=== PATIENT | female | born 1960 | race Caucasian/White ===

== ENCOUNTER → 2019-05-11 18:54 | Outpatient (BNVA) | payer MEDICAID, SELFPAY | PROVIDERS: Family Provider Nurse Practitioner Family; PCP Family Medicine; Visit Provider Family Medicine | DX: J44.9 Chronic obstructive pulmonary disease, unspecified (principal); E11.9 Type 2 diabetes mellitus without complications; Z79.4 Long term (current) use of insulin; I20.8 Other forms of angina pectoris; K21.9 Gastro-esophageal reflux disease without esophagitis; G47.00 Insomnia, unspecified; M48.00 Spinal stenosis, site unspecified; N36.1 Urethral diverticulum | CPT/HCPCS: 80053; 80061; 83036; 85025 ==

== ENCOUNTER → 2020-04-30 10:55 | Outpatient (BNVA) | payer MEDICAID, SELFPAY | PROVIDERS: Family Provider Nurse Practitioner Family; PCP Family Medicine; Visit Provider Family Medicine | DX: E11.9 Type 2 diabetes mellitus without complications (principal); J45.909 Unspecified asthma, uncomplicated; Z79.4 Long term (current) use of insulin; I20.8 Other forms of angina pectoris; G47.00 Insomnia, unspecified; I10 Essential (primary) hypertension; F17.210 Nicotine dependence, cigarettes, uncomplicated | CPT/HCPCS: 80053; 80061; 83036; 84443; 85025 ==

== ENCOUNTER → 2020-10-10 09:50 | Outpatient (BNVA) | payer MEDICAID, SELFPAY | PROVIDERS: Family Provider Nurse Practitioner Family; PCP Family Medicine; Visit Provider Family Medicine | DX: J45.909 Unspecified asthma, uncomplicated (principal); Z79.4 Long term (current) use of insulin; N36.1 Urethral diverticulum; E11.9 Type 2 diabetes mellitus without complications; G47.00 Insomnia, unspecified; I10 Essential (primary) hypertension | CPT/HCPCS: 80053; 80061; 83036; 84443; 85007; 85025 ==

== ENCOUNTER → 2021-03-12 10:52 | Outpatient (BNVA) | payer MEDICAID, SELFPAY | PROVIDERS: Family Provider Nurse Practitioner Family; PCP Family Medicine; Visit Provider Nurse Practitioner Family | DX: E11.9 Type 2 diabetes mellitus without complications (principal); I10 Essential (primary) hypertension; N95.1 Menopausal and female climacteric states; Z79.4 Long term (current) use of insulin; R00.2 Palpitations; G47.00 Insomnia, unspecified; G43.909 Migraine, unspecified, not intractable, without status migrainosus | CPT/HCPCS: 80053; 80061; 82306; 83036; 84443 ==

== ENCOUNTER → 2021-06-03 09:50 | Outpatient (BNVA) | payer MEDICAID, SELFPAY | PROVIDERS: Family Provider Nurse Practitioner Family; PCP Family Medicine; Visit Provider Nurse Practitioner Family | DX: E11.9 Type 2 diabetes mellitus without complications (principal); Z79.4 Long term (current) use of insulin; I10 Essential (primary) hypertension | CPT/HCPCS: 80053; 80061; 83036 ==

== ENCOUNTER → 2021-09-03 12:24 | Outpatient (BNVA) | payer MEDICAID, SELFPAY | PROVIDERS: Family Provider Nurse Practitioner Family; PCP Family Medicine; Visit Provider Nurse Practitioner Family | DX: H92.01 Otalgia, right ear (principal); G89.29 Other chronic pain; E55.9 Vitamin D deficiency, unspecified; G47.00 Insomnia, unspecified; J30.9 Allergic rhinitis, unspecified; I10 Essential (primary) hypertension; K59.00 Constipation, unspecified; E11.9 Type 2 diabetes mellitus without complications; Z79.4 Long term (current) use of insulin | CPT/HCPCS: 80053; 83036 ==

== ENCOUNTER → 2021-12-18 11:51 | Outpatient (BNVA) | payer MEDICAID, SELFPAY | PROVIDERS: Family Provider Nurse Practitioner Family; PCP Family Medicine; Visit Provider Nurse Practitioner Family | DX: I10 Essential (primary) hypertension (principal); F41.9 Anxiety disorder, unspecified; K59.00 Constipation, unspecified; E55.9 Vitamin D deficiency, unspecified; G47.00 Insomnia, unspecified; E11.9 Type 2 diabetes mellitus without complications; Z79.4 Long term (current) use of insulin; R00.2 Palpitations; G43.909 Migraine, unspecified, not intractable, without status migrainosus; R53.83 Other fatigue; R53.1 Weakness; Z09 Encounter for follow-up examination after completed treatment for conditions other than malignant neoplasm | CPT/HCPCS: 80053; 80061; 82607; 82746; 83036; 85025 ==

== ENCOUNTER → 2022-06-12 13:28 | Outpatient (BNVA) | payer MEDICAID, SELFPAY | PROVIDERS: Family Provider Nurse Practitioner Family; PCP Family Medicine; Visit Provider Nurse Practitioner Family | DX: E11.9 Type 2 diabetes mellitus without complications (principal); Z79.4 Long term (current) use of insulin; I10 Essential (primary) hypertension | CPT/HCPCS: 80053; 83036 ==

== ENCOUNTER 2022-06-15 21:33 | Observation (INO) | payer MEDICAID, SELFPAY ==
[2022-06-15 21:35] VITALS: BP 210/80; PULSE 68; RESP 18; TEMP 36.6; O2SAT 97; BMI 39.1
--- NOTE | 2022-06-15 21:45 | ECG_ITS ---
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 Measurements Intervals [place] Rate: 64 P: 156 ID: 160 QRS: -24 QRSD: 96 T: -29 QT: 439 QTc: 454 Interpretive Statements SINUS RHYTHM POSSIBLE LEFT ATRIAL ENLARGEMENT [-0.1mV P-WAVE IN V1/V2] POSSIBLE LEFT VENTRICULAR HYPERTROPHY [VOLTAGE CRITERIA PLUS LAE OR QRS WIDENING] POSSIBLE ANTEROSEPTAL MYOCARDIAL INFARCTION , OF INDETERMINATE AGE [30 ms Q WAVE IN V1-V4] No previous ECG available for comparison Electronically Signed On 06-16-2022 14:27:55 CDT by Chuck Polk M.D. [id number]
--- NOTE | 2022-06-15 22:51 | XRR_ITS ---
PROCEDURE INFORMATION: Exam: XR Chest Exam date and time: 06/15/2022 11:25 PM Age: 61 years old Clinical indication: Pain; Chest pressure; Additional info: Cp TECHNIQUE: Imaging protocol: Radiologic exam of the chest. Views: 1 view. COMPARISON: No relevant prior studies available. FINDINGS: Lungs: Cardiac silhouette size, and vascularity are somewhat accentuated, likely related to poor inspiration/expansion however clinical correlation for mild CHF should be obtained. Upper lungs are clear. Lung bases are suboptimally assessed. Tiny streaky left lateral basilar opacity is likely atelectasis. Pleural spaces: No pleural effusion. No pneumothorax. Heart/Mediastinum: As above. Bones/joints: No acute osseous findings. Other findings: Single view was submitted. XR/XR chest 1V portable [id number] IMPRESSION: 1. Accentuated cardiac silhouette size and vascularity. See discussion above. 2. No obvious acute consolidation. Probable left lateral atelectasis. Suboptimal lung base assessment. Followup including lateral view may be obtained if clinically indicated.
[2022-06-15 23:13] VITALS: PULSE 56; RESP 18; O2SAT 97
[2022-06-15 23:30] VITALS: BP 228/98; PULSE 54; RESP 18; O2SAT 97
--- NOTE | 2022-06-15 23:40 | PC.NURSE ---
Pt brought back to room 6 and placed on monitors. EKG is done.
[2022-06-15 23:53] LABS: Basophils # 0.1 10^3/uL (0.0-0.1); Basophils % 0.7 %; Eosinophils # 0.2 10^3/uL (0.0-0.8); Eosinophils % 2.1 %; Hemoglobin 12.7 g/dL (11.5-15.3); Lymphocytes # 2.2 10^3/uL (0.8-4.8); Lymphocytes % 23.6 %; Mean Corpuscular Hemoglobin 25.3 pg (28.0-34.0); Mean Corpuscular Volume 81.7 fl (81-99); Mean Platelet Volume 11.2 fL (7.4-10.4); Monocytes % 10.9 %; Neutrophils # 5.82 10^3/uL (1.8-7.7); Neutrophils % 62.4 %; Nucleated Red Blood Cells % 0 %; Platelet Count 249 10^3/cmm (130-400); Red Blood Count 5.02 10^6/uL (4.1-5.3); Red Cell Distribution Width 13.3 % (12.1-15.1); White Blood Count 9.4 10^3/uL (4.0-10.0)
[2022-06-15 23:59] LABS: Troponin(5th) Baseline 7 ng/L (0-10)
[2022-06-16] VITALS (43 sets, daily range): BP systolic 110–230; BP diastolic 52–96; PULSE 54–88; RESP 13–22; TEMP 36.5; O2SAT 92–99
[2022-06-16 00:11] LABS: Alanine Aminotransferase 11 U/L (0-33); Albumin Level 3.9 g/dL (3.5-5.2); Alkaline Phosphatase 119 U/L (35-105); Anion Gap 15.9 (5-19); Aspartate Amino Transferase 14 U/L (0-32); Blood Urea Nitrogen 16 mg/dL (6-20); Calcium 8.8 mg/dL (8.5-10.5); Carbon Dioxide 25 mmol/L (22-29); Chloride 98 mmol/L (98-107); Globulin 2.8 g/dL (1.3-4.6); Glomerular Filtration Rate 73.4 mL/min (90-130); Glucose 301 mg/dL (65-115); NT Pro B Type Natriuretic Pept 373 pg/mL (0-125); Osmolality Calculated 292 mOsm/kg (285-295); Potassium 3.9 mmol/L (3.5-5.1); Sodium 135 mmol/L (136-145); Total Bilirubin 0.2 mg/dL (0.15-1.2); Total Protein 6.7 g/dL (6.6-8.7)
[2022-06-16] MEDS: nitroglycerin 1 gm/inch oint Pkt 1.5 INCH TOPICAL (00:37)
--- NOTE | 2022-06-16 00:37 | W.ED.CHESTPA ---
HPI - Chest Pain General: Chief Complaint: Chest Pain Stated Complaint: CP, arms tingling Time Seen by Provider: 06/15/22 23:24 Source: patient and family History of Present Illness: 61-year-old female with no prior history of coronary disease. She does have a history of diabetes and hypertension. She presents with left-sided chest discomfort, radiating into her left arm and into her neck. This started at rest. It is still present. Her blood pressure was quite elevated. She has a headache as well. MD complaint: chest pain Pertinent past history: other Onset (ago): hour(s) Timing of current episode: constant Prior episodes: Yes Onset: during rest Pain location: left chest Pain radiation: left arm and neck Severity: moderate Quality: aching and heaviness Relieving factors: nothing Associated symptoms: Reports diaphoresis, dyspnea, nausea and other; Deny abdominal pain, fever(s), leg edema or vomiting Review of Systems Const: Reports: diaphoresis; Denies: fever(s) ENMT: Denies: throat pain Card: Reports: chest pain Resp: Reports: dyspnea; Denies: productive cough or non-productive cough GI: Reports: nausea; Denies: abdominal pain or vomiting Neuro: Reports: headache(s) and numbness in extremities (Left arm) Psych: Reports: anxiety PFSH ED PFSH: Medical History (Updated 06/16/22 @ 03:51 by Oj Carranza DO) Diabetes mellitus type 2, insulin dependent Migraines 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 Spinal stenosis Surgical History Previous section S/P appendectomy Family History Father Diabetes Other Hypertension Social History Smoking and tobacco status: never smoked Second hand smoke exposure: Yes Smoking risk assessment/counseling performed?: No Alcohol intake: never Desire information about alcohol rehabilitation?: No Counseling given: No Substance/Drug Use: never Marital status: Current occupational status: disabled Physical Exam Const: GENERAL APPEARANCE: cooperative and ill appearing (Mildly); not frail appearing NUTRITIONAL APPEARANCE: obese HENMT: COMMON NORMALS: normocephalic, atraumatic and Normal external nose present HEAD & SCALP: normocephalic and atraumatic FACE & SINUS: normal facial exam and face symmetric NOSE: Normal external nose present Eye: COMMON NORMALS: Equal, round and reactive pupils present and EOMs intact bilaterally PUPIL: Yes Equal, round and reactive pupils present Neck/C-Spine: GENERAL: Yes trachea midline Chest: CHEST: Yes Symmetrical chest wall rise Resp: COMMON NORMALS: normal respiratory effort, No retractions, No use of accessory muscles and clear to auscultation bilaterally AUSCULTATION: clear to auscultation bilaterally Cardio: COMMON NORMALS: regular rhythm RATE: bradycardic RHYTHM: regular rhythm GI: COMMON NORMALS: Normal to inspection, nondistended, normoactive bowel sounds present Extremity: COMMON NORMALS: no pedal edema Neuro: OBED COMA SCALE: document GCS findings [place] coma scale eye opening: Spontaneous [place] coma scale verbal response: Orientated [place] coma scale motor response: Obey commands [place] coma scale total score: 15 CRANIAL NERVES: Yes CN normal except as noted SPEECH: speech normal SENSORY EXAM: Yes extremities (intact) MOTOR EXAM: Normal motor muscle tone present throughout Psych: COMMON NORMALS: cooperative and speech normal SPEECH: Yes normal speech Skin: COMMON NORMALS: no rashes or lesions noted GENERAL SKIN EXAM: no rashes or lesions noted Course Vital Signs: Vital signs: Vital Signs Temperature 97.9 F 06/15/22 21:35 Pulse Rate 60 06/16/22 03:30 Respiratory Rate 16 06/16/22 03:30 Blood Pressure 110/63 06/16/22 03:30 Pulse Oximetry 96 06/16/22 03:30 Oxygen Delivery Me thod Room Air 06/16/22 03:30 MDM - Chest Pain Medical Decision Making Patient very hypertensive on arrival. Blood pressures have been hard to obtain on the monitor, and we have had to rely on manual pressures. Pressures have been up to 240 systolic. Improved transiently with 2 different doses of hydralazine. Labetalol was not an option due to bradycardia. Vasotec not an option due to adverse reaction of cough. Amlodipine not an option due to adverse reaction of weakness. She was given losartan. Nitropaste was placed on her chest. She wiped this off as it made her headache worse . Blood pressures were still over 200 systolic. At this point, we had no choice but to start nicardipine. It has worked well. Blood pressures currently normal. She is resting comfortably. Headache is improved. Chest discomfort is still mildly present but improved. CBC is normal. BMP shows a blood sugar of 301. EKG shows a sinus bradycardia with normal axis. Intervals are normal. Rate is 55. No acute ST changes. Chest x-ray shows cardiomegaly. There may be some mild vascular congestion as well. BNP is not significantly elevated. Her troponin remained normal at 2 hours. Because of hypertensive urgency, requiring IV drip blood pressure control, she will be admitted to the [facility]SU. Lab Data 06/15/22 23:13 06/15/22 23:13 Radiology Impressions Chest X-Ray 06/15/22 22:51 IMPRESSION: 1. Accentuated cardiac silhouette size and vascularity. See discussion above. 2. No obvious acute consolidation. Probable left lateral atelectasis. Suboptimal lung base assessment. Followup including lateral view may be obtained if clinically indicated. Laboratory Results WBC 9.4 10^3/uL (4.0-10.0) 06/15/22 23: RBC 5.02 10^6/uL (4.1-5.3) 06/15/22 23:13 Hgb 12.7 g/dL (11.5-15.3) 06/15/22 23:13 Hct 41.0 % (37.0-47.0) 06/15/22 23:13 MCV 81.7 fl (81-99) 06/15/22 23:13 MCH 25.3 pg (28.0-34.0) L 06/15/22 23: MCHC 31.0 g/dL (30.0-36.0) 06/15/22 23: RDW 13.3 % (12.1-15.1) 06/15/22 23:13 Plt Count 249 10^3/cmm (130-400) 06/15/22 23:13 MPV 11.2 fL (7.4-10.4) H 06/15/22 23:13 Neut % (Auto) 62.4 % 06/15/22 23:13 Lymph % (Auto) 23.6 % 06/15/22 23:13 [place] % (Auto) 10.9 % 06/15/22 23:13 Eos % (Auto) 2.1 % 06/15/22 23:13 Baso % (Auto) 0.7 % 06/15/22 23:13 Neut # (Auto) 5.82 10^3/uL (1.8-7.7) 06/15/22 23:13 Lymph # (Auto) 2.2 10^3/uL (0.8-4.8) 06/15/22 23:13 [place] # (Auto) 1.0 10^3/uL (0.2-0.9) H 06/15/22 23:13 Eos # (Auto) 0.2 10^3/uL (0.0-0.8) 06/15/22 23:13 Baso # (Auto) 0.1 10^3/uL (0.0-0.1) 06/15/22 23:13 Nucleated RBC % (auto) 0 % 06/15/22 23:13 Nucleated RBCs # 0.0 /100WBC 06/15/22 23:13 Sodium 135 mmol/L (136-145) L 06/15/22 23:13 Potassium 3.9 mmol/L (3.5-5.1) 06/15/22 23:13 Chloride 98 mmol/L (98-107) 06/15/22 23:13 Carbon Dioxide 25 mmol/L (22-29) 06/15/22 23:13 Anion Gap 15.9 (5-19) 06/15/22 23:13 BUN 16 mg/dL (6-20) 06/15/22 23:13 Creatinine 0.8 mg/dL (0.5-0.9) 06/15/22 23:13 GFR Calculation 73.4 mL/min (90-130) L 06/15/22 23:13 Glucose 301 mg/dL (65-115) H 06/15/22 23:13 Calculated Osmolality 292 mOsm/kg (285-295) 06/15/22 23:13 Calcium 8.8 mg/dL (8.5-10.5) 06/15/22 23:13 Total Bilirubin 0.2 mg/dL (0.15-1.2) 06/15/22 23:13 AST 14 U/L (0-32) 06/15/22 23:13 ALT 11 U/L (0-33) 06/15/22 23:13 Alkaline Phosphatase 119 U/L (35-105) H 06/15/22 23:13 Troponin T Baseline 7 ng/L (0-10) 06/15/22 23:13 Troponin T 120 Minute 6.40 ng/L (0-10) 06/16/22 01:35 Delta Troponin T -0.6 ABS# (0-10) L 06/16/22 01:35 NT-Pro-B Natriuret Pep 373 pg/mL (0-125) H 06/15/22 23:13 Total Protein 6.7 g/dL (6.6-8.7) 06/15/22 23:13 Albumin 3.9 g/dL (3.5-5.2) 06/15/22 23:13 Globulin 2.8 g/dL (1.3-4.6) 06/15/22 23:13 Critical Care Time Critical Care Time: Critical Care Time: Yes Total Critical Care Time: 40 Attestation: This case had a high probability of a clinically significant, sudden, or life threatening deterioration of this patient's condition which required my full and direct attention, intervention and personal management. Time is independent of any procedures performed. Discharge Plan Discharge Patient Disposition: Admitted As Inpatient Clinical Impression: Hypertensive urgency, malignant Condition: Fair Prescriptions: No Action (DME) Poise Pads Pad See Rx Instructions .ROUTE .MEDSUPPLY Qty: 132 4RF Rx Instructions: FOR INCONTINANCE FROM SPECIFIED CONDITION clotrimazole [Lotrimin AF (clotrimazole)] 1 % cream 1 applic topical BID 28 Days Qty: 30 1RF nitroglycerin 0.4 mg tablet, sublingual 0.4 mg sublingual Q5M Qty: 25 0RF GlucaGen HypoKit 1 mg recon soln 1 mg SUBCUT Q20M PRN (Reason: hypoglycemia) Qty: 1 2RF Rx Instructions: until target blood sugar attained acetaminophen-codeine 300-60 mg tablet 1 tab PO Q6H Qty: 120 0RF buspirone 10 mg tablet 10 mg PO TID 90 Days Qty: 270 1RF cholecalciferol (vitamin D3) 25 mcg (1,000 unit) capsule 25 mcg PO DAILY 90 Days Qty: 90 1RF docusate sodium [DSS] 250 mg capsule 250 mg PO BID 90 Days Qty: 180 1RF fexofenadine [Shanna Allergy] 180 mg tablet 180 mg PO Q24H 90 Days Qty: 90 1RF fluticasone propionate [Flonase Allergy Relief] 50 mcg/actuation spray,suspension 2 spray intranasal DAILY 30 Days Qty: 16 6RF Rx Instructions: administer into each nostril Flovent HFA 44 mcg/actuation HFA aerosol inhaler 2 puff INHALATION BID Qty: 31.8 1RF Lantus U-100 Insulin 100 unit/mL solution 90 unit SUBCUT BID Qty: 50 6RF insulin lispro [Humalog U-100 Insulin] 100 unit/mL solution See Rx Instructions .ROUTE .COMPLEX Qty: 60 6RF Dose Instruction: inject 40 units SUBCUTANEOUSLY THREE TIMES DAILY Rx Instructions: inject 40 units SUBCUTANEOUSLY THREE TIMES DAILY ipratropium-albuterol 0.5 mg-3 mg(2.5 mg base)/3 mL solution for nebulization See Rx Instructions .ROUTE .COMPLEX Qty: 180 1RF Dose Instruction: USE 3 ML VIA NEBULIZER FOUR TIMES DAILY NEEDED FOR WHEEZING Rx Instructions: USE 3 ML VIA NEBULIZER FOUR TIMES DAILY NEEDED FOR WHEEZING metoprolol succinate 25 mg tablet extended release 24 hr See Rx Instructions .ROUTE .COMPLEX Qty: 90 1RF Hold Instructions: Home Medication placed on hold at Doctor's office Dose Instruction: TAKE ONE TABLET BY MOUTH DAILY Rx Instructions: TAKE ONE TABLET BY MOUTH DAILY temazepam 30 mg capsule 30 mg PO .qhs 90 Days Qty: 90 1RF pantoprazole [Protonix] 40 mg tablet,delayed release (DR/EC) 40 mg PO DAILY 90 Days Qty: 90 1RF blood sugar diagnostic Strip See Rx Instructions .ROUTE .COMPLEX Qty: 150 3RF Dose Instruction: USE DIRECTED TO test FOUR TIMES DAILY AT meals AND AT BEDTIME Rx Instructions: USE DIRECTED TO test FOUR TIMES DAILY AT meals AND AT BEDTIME (DME) Blood Glucose Test Strip See Rx Instructions .Route Qty: 50 5RF Rx Instructions: TESTING FOUR TIMES DAILY lancets [OneTouch Delica Plus Lancet] 33 gauge misc See Rx Instructions .ROUTE .COMPLEX Qty: 100 3RF Dose Instruction: USE DIRECTED TO test FOUR TIMES DAILY AND AT bedtime Rx Instructions: USE DIRECTED TO test FOUR TIMES DAILY AND AT bedtime labetalol 100 mg tablet 100 mg PO BID 30 Days Qty: 60 0RF (DME) blood-glucose meter Misc See Rx Instructions .Route Qty: 1 0RF Rx Instructions: As directed albuterol sulfate [ProAir HFA] 90 mcg/actuation HFA aerosol inhaler See Rx Instructions .ROUTE .COMPLEX Qty: 17 3RF Dose Instruction: inhale TWO puffs into lungs EVERY 4 TO 6 HOURS NEEDED FOR SHORTNESS OF BREATH OR wheezing Rx Instructions: inhale TWO puffs into lungs EVERY 4 TO 6 HOURS NEEDED FOR SHORTNESS OF BREATH OR wheezing insulin syringe-needle U-100 [BD Insulin Syringe Ultra-Fine] 1 mL 31 gauge x 5/16 syringe See Rx Instructions .ROUTE .COMPLEX Qty: 200 5RF Dose Instruction: USE DIRECTED FIVE times DAILY Rx Instructions: USE DIRECTED FIVE times DAILY Referrals: Patricia Abad NP [Primary Care Provider] - Coding Level of Care Code ED Superintendent Renting Managing for Raymond Drake
[2022-06-16] MEDS: hyDRALAzine 20 mg/mL INJ 1 mL IVP ×2 (00:38→01:17)
--- NOTE | 2022-06-16 00:48 | ECG_ITS ---
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 Measurements Intervals [place] Rate: 54 P: 46 [place]: 169 QRS: 2 QRSD: 99 T: -7 QT: 462 QTc: 438 Interpretive Statements SINUS BRADYCARDIA SEPTAL MYOCARDIAL INFARCTION , OF INDETERMINATE AGE [40+ ms Q WAVE IN V1/V2] No previous ECG available for comparison Electronically Signed On 06-16-2022 14:32:59 CDT by Chuck Polk M.D. [id number]
[2022-06-16] MEDS: acetaminophen 500 mg Tablet 1000 MG PO (01:17)
[2022-06-16] MEDS: losartan 50 mg Tablet 100 MG PO (01:17)
--- NOTE | 2022-06-16 01:50 | PC.NURSE ---
Pt sitting up in bed and starting to hyperventilate saying, I just don't feel right man . Dr. Carranza called to bedside - pt's blood pressure manual is 230/96 - pt's bp won't take on automatic machine. Pt is not diaphoretic and states her headache is gone. Dr. Carranza to put in orders.
[2022-06-16] MEDS: nicardipine 20 MG/200 ML PREMIX 50 MG IV (01:57)
[2022-06-16] MEDS: LORazepam 2 mg/mL INJ 1 mL 0.5 MG IVP (01:57)
[2022-06-16 02:46] LABS: Troponin 5 2HR Delta -0.6 ABS# (0-10)
--- NOTE | 2022-06-16 02:48 | CTR_ITS ---
PROCEDURE INFORMATION: Exam: CT Head Without Contrast Exam date and time: 06/16/2022 2:59 AM Age: 61 years old Clinical indication: Pain; Headache; Other: HTN; Additional info: Headache, HTN TECHNIQUE: Imaging protocol: Computed tomography of the head without contrast. Radiation optimization: All CT scans at this facility use at least one of these dose optimization techniques: automated exposure control; mA and/or kV adjustment per patient size (includes targeted exams where dose is matched to clinical indication); or iterative reconstruction. REPORTING DATA: Count of CT and Cardiac NM exams in prior 12 months: This patient has received 0 known CTs and 0 known cardiac nuclear medicine studies in the 12 months prior to the current study. COMPARISON: CT facial bones wo con* [id number] 05/29/2016 2:41 PM RADIATION DOSE METRICS: Total DLP (mGy-cm): 1283.43 FINDINGS: Brain: No hemorrhage. No edema, mass effect or midline shift. Periventricular and deep white matter hypodensities compatible with chronic microvascular ischemic changes. Cerebral ventricles: No ventriculomegaly. Paranasal sinuses: Visualized sinuses are unremarkable. No fluid levels. Mastoid air cells: No mastoid effusion. Bones/joints: No acute fracture. Soft tissues: Unremarkable. CT/CT head wo con* [id number] IMPRESSION: No acute intracranial abnormality.
--- NOTE | 2022-06-16 04:59 | ECG_ITS ---
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 Measurements Intervals [place] Rate: 73 P: 75 [place]: 148 QRS: 26 QRSD: 102 T: 15 QT: 407 QTc: 451 Interpretive Statements SINUS RHYTHM NONSPECIFIC ST & T-WAVE ABNORMALITY Compared to ECG 06/16/2022 00:48:09 T-wave abnormality now present Sinus bradycardia no longer present Myocardial infarct finding no longer present Electronically Signed On 06-16-2022 14:33:35 CDT by Chuck Polk M.D. [email or web address] [email or web address] Cards [email or web address] Solutionsmary [email or web address]/store/[id number]
--- NOTE | 2022-06-16 05:25 | PM.HP ---
Providers/Chief Complaint Admitting Physician: Jordi Caba MD Primary Care Provider: Patricia Abad NP Chief Complaint: CP, arms tingling History of Present Illness Antonia Shepard is a 61 year old female with a past medical history of hypertension, insulin-dependent type 2 diabetes mellitus, GERD, who presents to [facility] due to chest pain. Patient tells me that she has been having chest pain for the last week, left-sided, nonradiating, since she tells me it feels like a twinge, under her left breast, lasting a few seconds, she thinks is associate with her high blood pressure, which she has been dealing for the last few weeks she saw her primary care provider she is on clonidine, she has multiple drug allergies. Tonight she started to develop the left-sided chest pain, and she was worried about her elevated blood pressure so she came to [facility] for evaluation Review of Systems Const: Denies: fever(s) Eyes: Denies: change in vision Card: Reports: chest pain; Denies: palpitations Resp: Denies: dyspnea GI: Denies: abdominal pain : Denies: flank pain Musc: Denies: neck pain Medications/Allergies Home Medications Medication Instructions Recorded Confirmed Last Taken Type incontinence pad, liner, disp #132 ea 10/10/20 12/24/21 Unknown Rx (Poise Pads) clotrimazole 1 % topical cream 1 applic topical BID 4 weeks #30 03/06/21 06/12/22 Unknown Rx (Lotrimin AF (clotrimazole)) grams nitroglycerin 0.4 mg sublingual 0.4 mg sublingual Q5M #25 tabs 03/12/21 12/24/21 Unknown Rx tablet glucagon 1 mg solution for 1 mg SUBCUT Q20M PRN hypoglycemia 04/25/21 06/12/22 Unknown Rx injection (GlucaGen HypoKit) #1 ea blood-glucose meter #1 ea 11/08/21 06/12/22 Unknown Rx albuterol sulfate 90 mcg/actuation See Rx Instructions .Route 03/27/22 06/12/22 Unknown Rx aerosol inhaler (ProAir HFA) .COMPLEX #17 grams insulin syringe-needle U-100 1 mL See Rx Instructions .Route 03/27/22 06/12/22 Unknown Rx 31 gauge x 5/16 (BD Insulin .COMPLEX #200 ea Syringe Ultra-Fine) acetaminophen 300 mg-codeine 60 mg 1 tab PO Q6H #120 tabs 06/12/22 06/12/22 Unknown Rx tablet blood sugar diagnostic See Rx Instructions .Route 06/12/22 06/12/22 Unknown Rx .COMPLEX #150 strips blood sugar diagnostic (Blood #50 ea 06/12/22 06/12/22 Unknown Rx Glucose Test strips) buspirone 10 mg tablet 10 mg PO TID 90 days #270 tabs 06/12/22 06/12/22 Unknown Rx cholecalciferol (vitamin D3) 25 25 mcg PO DAILY 90 days #90 caps 06/12/22 06/12/22 Unknown Rx mcg (1,000 unit) capsule docusate sodium 250 mg capsule 250 mg PO BID 90 days #180 caps 06/12/22 06/12/22 Unknown Rx (DSS) fexofenadine 180 mg tablet 180 mg PO Q24H 90 days #90 tabs 06/12/22 06/12/22 Unknown Rx (Shanna Allergy) fluticasone propionate 44 2 puff inhalation BID #31.8 grams 06/12/22 06/12/22 Unknown Rx mcg/actuation HFA aerosol inhaler (Flovent HFA) fluticasone propionate 50 2 spray intranasal DAILY 30 days 06/12/22 06/12/22 Unknown Rx mcg/actuation nasal #16 grams spray,suspension (Flonase Allergy Relief) insulin glargine 100 unit/mL 90 unit (0.9 mL) SUBCUT BID #50 mL 06/12/22 06/12/22 Unknown Rx subcutaneous solution (Lantus U-100 Insulin) insulin lispro 100 unit/mL See Rx Instructions .Route 06/12/22 06/12/22 Unknown Rx subcutaneous solution (Humalog .COMPLEX #60 mL U-100 Insulin) ipratropium 0.5 mg-albuterol 3 mg See Rx Instructions .Route 06/12/22 06/12/22 Unknown Rx (2.5 mg base)/3 mL nebulization .COMPLEX #180 mL soln lancets 33 gauge (OneTouch Delica See Rx Instructions .Route 06/12/22 06/12/22 Unknown Rx Plus Lancet) .COMPLEX #100 ea metoprolol succinate 25 mg See Rx Instructions .Route 06/12/22 06/12/22 Unknown Rx tablet,extended release 24 hr .COMPLEX #90 tabs pantoprazole 40 mg tablet,delayed 40 mg PO DAILY 90 days #90 tabs 06/12/22 06/12/22 Unknown Rx release (Protonix) temazepam 30 mg capsule 30 mg PO .qhs 90 days #90 caps 06/12/22 06/12/22 Unknown Rx labetalol 100 mg tablet 100 mg PO BID 30 days #60 tabs 06/13/22 06/13/22 Unknown Rx Allergies Allergy/AdvReac Type Severity Reaction Status Date / Time Anesthetics - Amide Type - Allergy Severe cardiac Verified 04/25/21 11:16 Select A arrest [Anesthetics - Amide Type] cefaclor [From Ceclor] Allergy Severe rash Verified 04/25/21 11:16 Iodinated Contrast Media Allergy Severe ALGY-Anaphy Verified 04/25/21 11:16 laxis Sulfa (Sulfonamide Allergy Intermediate rash Verified 04/25/21 11:16 Antibiotics) amlodipine Allergy ADV-Weaknes Verified 06/16/22 00:34 s Gadolinium-Containing AdvReac Severe flush Verified 04/25/21 11:16 Contrast Medi PFSH Acute PFSH: Medical History Diabetes mellitus type 2, insulin dependent Migraines 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 Spinal stenosis Surgical History Previous section S/P appendectomy Family History Father Diabetes Other Hypertension Social History Smoking and tobacco status: never smoked Second hand smoke exposure: Yes Smoking risk assessment/counseling performed?: No Alcohol intake: never Desire information about alcohol rehabilitation?: No Counseling given: No Substance/Drug Use: never Marital status: Current occupational status: disabled Vitals/I&O/Wt Last Vital Signs Temp 97.7 F 06/16/22 05:04 Pulse 77 06/16/22 05:04 Resp 16 06/16/22 05:04 BP 191/73 06/16/22 05:04 Pulse Ox 97 06/16/22 05:04 O2 Del Method Room Air 06/16/22 05:04 06/15/22 06/15/22 06/16/22 14:59 22:59 06:59 Intake Total 134.583 / 134.583 Balance 134.583 / 134.583 Weight last 48 hrs Weight 100.244 kg Physical Exam Const: COMMON NORMALS: no acute distress and patient oriented x3 Eye: COMMON NORMALS: Equal, round and reactive pupils present and EOMs intact bilaterally Neck/C-Spine: COMMON NORMALS: full ROM and no lymphadenopathy Resp: COMMON NORMALS: normal respiratory effort, No retractions, No use of accessory muscles and clear to auscultation bilaterally AUSCULTATION: clear to auscultation bilaterally Cardio: COMMON NORMALS: regular rate, regular rhythm, S1 normal heart sound present and S2 normal heart sound present RATE: regular rate RHYTHM: regular rhythm HEART SOUNDS: S1 normal heart sound present and S2 normal heart sound present GI: COMMON NORMALS: Normal to inspection, nondistended, normoactive bowel sounds present, Soft to palpation and non-tender Extremity: COMMON NORMALS: no pedal edema Neuro: COMMON NORMALS: patient oriented x3, CN's II-XII intact bilaterally, moves all extremities and no focal motor deficits Psych: COMMON NORMALS: mental status grossly normal Data 06/15/22 23:13 06/15/22 23:13 A&P Assessment and plan (1) Hypertensive urgency, malignant: (2) Chest pain: Qualifiers: Chest pain type: other chest pain Qualified Code(s): R07.89 - Other chest pain (3) Diabetes mellitus type 2, insulin dependent: Plan Hypertensive urgency -Continue Cardene drip -Continue home Toprol 25 mg once daily -Add chlorthalidone 25 mg once daily -Reported multiple drug allergies including lisinopril, Norvasc Chest pain -Serial EKGs, serial troponins, telemetry monitoring, cardiac echo Type 2 diabetes mellitus, Lantus 40 units every 24 hours, low-dose sliding scale Attestations Medical Necessity Statement*: Patient requires hospitalization for hypertensive urgency, chest pain, outpatient with observation Diagnoses Hypertensive urgency, malignant I16.0 Chest pain R07.89 Chest pain type: other chest pain Diabetes mellitus type 2, insulin dependent E11.9; Z79.4
[2022-06-16] MEDS: chlorthalidone 25 mg Tablet PO (05:41)
[2022-06-16 06:05] LABS: Troponin 5 6HR 11.03 ng/L (0-10)
[2022-06-16 06:08] LABS: Troponin 5 6HR Delta 4.03 ng/L (0-12)
[2022-06-16 06:41] LABS: Glucose Point of Care 153 mg/dL (70-110)
--- NOTE | 2022-06-16 08:00 | PC.NURSE ---
Patient refused buspar stating she has never taken it and doesn't want to take it. Non-admin in the MAR.
[2022-06-16] MEDS: insulin lispro 100 unit/1 mL SUBCUT (08:07)
--- NOTE | 2022-06-16 08:18 | PC.PHAR ---
PT AND STATE PT WAS TAKING CLONIDINE HCL 0.1 MG DAILY WAS NOT WORKING - DR SWITCHED PT TO LOSARTAN 50MG PT STS SHE HAD A REACTION SO DR SWITCHED PT TO LOBETALOL 100 MG BID HAS NOT BEEN PICKED UP FROM PHARMACY- PT STS SHE LAST TOOK CLONIDINE 0.1 MG DAILY
--- NOTE | 2022-06-16 09:20 | USCV_ITS ---
Antonia Shepard Age: 61 Gender: F : 1960 Exam Date: 06/16/2022 10:25 Ordering Phys: Franklin Cedillo MD Technologist: Andrey Hurt [place] [facility] [place]: chest pain BP: 153 / 54 HR: 61 Rhythm: Sinus Technical Quality: Adequate MEASUREMENTS (Male / Female) Normal Values 2D ECHO LV Diastolic Diameter PLAX 3.9 cm 4.2 - 5.9 / 3.9 - 5.3 cm LV Systolic Diameter PLAX 2.8 cm IVS Diastolic Thickness 1.1 cm 0.6 - 1.0 / 0.6 - 0.9 cm IVS Systolic Thickness 1.7 cm LVPW Diastolic Thickness 1.2 cm 0.6 - 1.0 / 0.6 - 0.9 cm LVPW Systolic Thickness 1.4 cm LVOT Diameter 2.1 cm LV Ejection Fraction 2D Teich 57.0 % LV Ejection Fraction MOD 2C 65.7 % LV Ejection Fraction 2C AL 66.0 % LA Diameter 3.8 cm M-MODE Aortic Annulus Diameter 3.2 cm LA Ao Ratio MM 1.3 MV E Point Septal Separation 1.0 cm DOPPLER AV Peak Velocity 181.0 cm/s LVOT Peak Velocity 108.0 cm/s AV Area Cont Eq vti 2.8 cm squared AV Area Cont Eq pk 2.0 cm squared MV Area PHT 2.5 cm squared Mitral E to A Ratio 0.9 MV E' Velocity 46.5 cm/s Mitral E to MV E' Ratio 13.4 Mitral E to LV E' Lateral Ratio 11.9 Mitral E to LV E' Septal Ratio 15.6 TR Peak Velocity 165.3 cm/s TR Peak Gradient 10.9 mmHg TV Peak E Velocity 77.0 cm/s Right Atrial Pressure 3.0 mmHg Pulmonary Artery Systolic Pressu 13.9 mmHg PV Peak Velocity 127.0 cm/s FINDINGS Left Ventricle Left ventricle is normal in size. LV systolic function is normal with EF of 60-65 %. No regional wall motion abnormalities are seen. Right Ventricle Normal in size and function Right Atrium Normal in size Left Atrium Normal in size Mitral Valve Structurally normal mitral valve. Trace mitral regurgitation. Aortic Valve Aortic valve is thickened. No significant aortic stenosis or regurgitation is seen. Tricuspid Valve Mild tricuspid regurgitation. Insufficient TR jet to calculate RVSP. Pulmonic Valve Not well-visualized. Pericardium Normal Aorta Normal in size IVC Appears to be normal CONCLUSIONS LV systolic function is normal with EF of 60 to 65%. Trace mitral regurgitation Mild tricuspid regurgitation No comparison studies are available Tony Abrams MD (Electronically Signed) Final Date: 16 June 2022 12:47 S
--- NOTE | 2022-06-16 09:28 | PC.NURSE ---
Patient states that her pain in her chest feel like when you take a big drink of water and then you get that pain in your chest . She gets some relief when she belches.
[2022-06-16] MEDS: acetaminophen 325 mg Tablet 650 MG PO (09:32)
[2022-06-16] MEDS: cloNIDine 0.1 mg Tablet PO (09:32)
[2022-06-16 10:15] LABS: Thyroid Stimulating Hormone 3.49 uIU/mL (0.27-4.20)
--- NOTE | 2022-06-16 11:26 | PC.NURSE ---
Patient refused Lantus and said she knows herself and with what she was eating for breakfast, she would not need it. Her lunch time glucose was 140.
[2022-06-16 11:58] LABS: Glucose Point of Care 140 mg/dL (70-110)
[2022-06-16] MEDS: losartan 50 mg Tablet 25 MG PO (12:13)
--- NOTE | 2022-06-16 14:19 | PM.DCS ---
Discharge Providers Date of Admission: 06/16/22 05:34 Date of Discharge: June 16, 2022 Attending Provider at Admission: Jordi Caba MD Attending Provider at Discharge: Franklin Cedillo MD Primary Care Provider: Patricia Abad NP Diagnoses at Discharge Discharge Diagnosis (1) Hypertensive urgency, malignant: Status: Acute (2) Chest pain: Status: Acute Qualifiers: Chest pain type: other chest pain Qualified Code(s): R07.89 - Other chest pain (3) Diabetes mellitus type 2, insulin dependent: Status: Acute Reason for Visit Reason for Visit: CP, arms tingling Hospital Course Hospital Course Antonia presented to the emergency department with complaints of elevated blood pressure. She reported twinges of discomfort in her chest, seconds in duration associated with this. She had recently seen her primary care provider, and was trying to stop taking clonidine. It had been recommended she initiate labetalol which she had not yet got filled from the pharmacy. On admission blood pressure was quite high and she got a number of medications through the emergency department including hydralazine IV, nitroglycerin ointment, Norvasc, losartan, Cardene, morphine, Ativan. After admission serial enzymes were done. EKGs were done. There were no significant EKG changes during her hospital stay. When I visited her she had no significant discomfort. We talked for quite a while regarding clonidine, propensity for withdrawal if it is stopped suddenly. Chlorthalidone was initiated up as well as losartan. Clonidine was restarted at 0.1 mg twice daily. I have visited with her extensively regarding tapering this, and I called her primary care provider to discuss that as well. Hopefully over the next 10 to 14 days she can taper off clonidine completely. Her losartan may need to be increased during this process. I discussed with her the possibility of nuclear stress testing secondary to her presentation. She refused, reporting she would not want to have any injection of anything into her body to simulate exercise or nuclear isotope. We also discussed other routes of investigation, including radiological dye which she reports she would refuse that as well. She very much wanted to go home. She reported she had follow-up with cardiology, Dr. Michael. She did have an echocardiogram done which demonstrated preserved EF and no wall motion abnormalities. As she was chest pain-free, blood pressure was much improved, and there was a plan going forward for treatment of her hypertension it was elected for discharge home. I spent quite a bit of time discussing options, treatment going forward, and responding to questions. By the end of the hospitalization patient agreed to plan going forward and follow-up with her primary and cardiology regarding her hypertension and symptoms. TSH was also checked during her hospital stay that was normal. Head CT was normal. Physical Exam Narrative: General exam no distress Neck is supple Cardiovascular regular rate and rhythm Lungs clear Abdomen is soft, positive bowel sounds Extremities no cyanosis clubbing or edema Neuro no focal deficits Discharge Data Studies Completed and Pending Completed Studies During Hospitalization Category Date Time Status CT head wo con* [id number] Stat Cat Scan 06/16/22 02:48 Completed XR chest 1V portable [id number] Stat Exams 06/15/22 22:51 Completed CV. echo complete* [id number] Routine Ultrasound 06/16/22 09:20 Completed Pending at discharge Category Date Time Status Hemoglobin A1C AM LABS Lab 06/17/22 04:00 Ordered Lipid Panel AM LABS Lab 06/17/22 04:00 Ordered NT Pro B Type Natriuretic Pept AM LABS Lab 06/17/22 04:00 Ordered Radiology Impressions Chest X-Ray 06/15/22 22:51 IMPRESSION: 1. Accentuated cardiac silhouette size and vascularity. See discussion above. 2. No obvious acute consolidation. Probable left lateral atelectasis. Suboptimal lung base assessment. Followup including lateral view may be obtained if clinically indicated. Head CT 06/16/22 02:48 IMPRESSION: No acute intracranial abnormality. Laboratory Results WBC 9.4 10^3/uL (4.0-10.0) 06/15/22 23:13 RBC 5.02 10^6/uL (4.1-5.3) 06/15/22 23:13 Hgb 12.7 g/dL (11.5-15.3) 06/15/22 23:13 Hct 41.0 % (37.0-47.0) 06/15/22 23:13 MCV 81.7 fl (81-99) 06/15/22 23:13 MCH 25.3 pg (28.0-34.0) L 06/15/22 23:13 MCHC 31.0 g/dL (30.0-36.0) 06/15/22 23:13 RDW 13.3 % (12.1-15.1) 06/15/22 23:13 Plt Count 249 10^3/cmm (130-400) 06/15/22 23:13 MPV 11.2 fL (7.4-10.4) H 06/15/22 23:13 Neut % (Auto) 62.4 % 06/15/22 23:13 Lymph % (Auto) 23.6 % 06/15/22 23:13 Elliott % (Auto) 10.9 % 06/15/22 23:13 Eos % (Auto) 2.1 % 06/15/22 23:13 Baso % (Auto) 0.7 % 06/15/22 23:13 Neut # (Auto) 5.82 10^3/uL (1.8-7.7) 06/15/22 23:13 Lymph # (Auto) 2.2 10^3/uL (0.8-4.8) 06/15/22 23:13 Elliott # (Auto) 1.0 10^3/uL (0.2-0.9) H 06/15/22 23:13 Eos # (Auto) 0.2 10^3/uL (0.0-0.8) 06/15/22 23:13 Baso # (Auto) 0.1 10^3/uL (0.0-0.1) 06/15/22 23:13 Nucleated RBC % (auto) 0 % 06/15/22 23:13 Nucleated RBCs # 0.0 /100WBC 06/15/22 23:13 Sodium 135 mmol/L (136-145) L 06/15/22 23:13 Potassium 3.9 mmol/L (3.5-5.1) 06/15/22 23:13 Chloride 98 mmol/L (98-107) 06/15/22 23:13 Carbon Dioxide 25 mmol/L (22-29) 06/15/22 23:13 Anion Gap 15.9 (5-19) 06/15/22 23:13 BUN 16 mg/dL (6-20) 06/15/22 23:13 Creatinine 0.8 mg/dL (0.5-0.9) 06/15/22 23:13 GFR Calculation 73.4 mL/min (90-130) L 06/15/22 23:13 Glucose 301 mg/dL (65-115) H 06/15/22 23:13 POC Glucose 140 mg/dL (70-110) H 06/16/22 11:23 Calculated Osmolality 292 mOsm/kg (285-295) 06/15/22 23:13 Calcium 8.8 mg/dL (8.5-10.5) 06/15/22 23:13 Total Bilirubin 0.2 mg/dL (0.15-1.2) 06/15/22 23:13 AST 14 U/L (0-32) 06/15/22 23:13 ALT 11 U/L (0-33) 06/15/22 23:13 Alkaline Phosphatase 119 U/L (35-105) H 06/15/22 23:13 Troponin T Baseline 7 ng/L (0-10) 06/15/22 23:13 Troponin T 120 Minute 6.40 ng/L (0-10) 06/16/22 01:35 Delta Troponin T -0.6 ABS# (0-10) L 06/16/22 01:35 Troponin T Hi Sens 6Hr 11.03 ng/L (0-10) H 06/16/22 05:22 Troponin T Hi Sens 6Hr Delta 4.03 ng/L (0-12) 06/16/22 05:22 NT-Pro-B Natriuret Pep 373 pg/mL (0-125) H 06/15/22 23:13 Total Protein 6.7 g/dL (6.6-8.7) 06/15/22 23:13 Albumin 3.9 g/dL (3.5-5.2) 06/15/22 23:13 Globulin 2.8 g/dL (1.3-4.6) 06/15/22 23:13 TSH 3.49 uIU/mL (0.27-4.20) 06/16/22 05:22 Vitals Last Vital Signs Temp 97.7 F 06/16/22 07:04 Pulse 54 L 06/16/22 12:15 Resp 22 H 06/16/22 12:15 BP 149/72 06/16/22 12:15 Pulse Ox 99 06/16/22 12:00 O2 Del Method Room Air 06/16/22 07:04 Discharge Plan Discharge Condition: Stable Prescriptions: New chlorthalidone 25 mg Tablet 25 mg PO Q24H Qty: 30 0RF clonidine HCl 0.1 mg Tablet 0.1 mg PO BID Qty: 60 0RF losartan 50 mg Tablet 25 mg PO DAILY Qty: 15 0RF Continued (DME) Poise Pads Pad See Rx Instructions .ROUTE .MEDSUPPLY Qty: 132 4RF Rx Instructions: FOR INCONTINANCE FROM SPECIFIED CONDITION nitroglycerin 0.4 mg tablet, sublingual 0.4 mg sublingual Q5M Qty: 25 0RF GlucaGen HypoKit 1 mg recon soln 1 mg SUBCUT Q20M PRN (Reason: hypoglycemia) Qty: 1 2RF Rx Instructions: until target blood sugar attained acetaminophen-codeine 300-60 mg tablet 1 tab PO Q6H Qty: 120 0RF docusate sodium [DSS] 250 mg capsule 250 mg PO BID 90 Days Qty: 180 1RF Flovent HFA 44 mcg/actuation HFA aerosol inhaler 2 puff INHALATION BID Qty: 31.8 1RF insulin lispro [Humalog U-100 Insulin] 100 unit/mL solution See Rx Instructions .ROUTE .COMPLEX Qty: 60 6RF Dose Instruction: inject 40 units SUBCUTANEOUSLY THREE TIMES DAILY Rx Instructions: inject 40 units SUBCUTANEOUSLY THREE TIMES DAILY PER SLIDING SCALE ipratropium-albuterol 0.5 mg-3 mg(2.5 mg base)/3 mL solution for nebulization See Rx Instructions .ROUTE .COMPLEX Qty: 180 1RF Dose Instruction: USE 3 ML VIA NEBULIZER FOUR TIMES DAILY NEEDED FOR WHEEZING Rx Instructions: USE 3 ML VIA NEBULIZER FOUR TIMES DAILY NEEDED FOR WHEEZING temazepam 30 mg capsule 30 mg PO .qhs 90 Days Qty: 90 1RF pantoprazole [Protonix] 40 mg tablet,delayed release (DR/EC) 40 mg PO DAILY 90 Days Qty: 90 1RF blood sugar diagnostic Strip See Rx Instructions .ROUTE .COMPLEX Qty: 150 3RF Dose Instruction: USE DIRECTED TO test FOUR TIMES DAILY AT meals AND AT BEDTIME Rx Instructions: USE DIRECTED TO test FOUR TIMES DAILY AT meals AND AT BEDTIME (DME) Blood Glucose Test Strip See Rx Instructions .Route Qty: 50 5RF Rx Instructions: TESTING FOUR TIMES DAILY (DME) blood-glucose meter Misc See Rx Instructions .Route Qty: 1 0RF Rx Instructions: As directed Lantus U-100 Insulin 100 unit/mL solution 70 unit SUBCUT BID Discontinued metoprolol succinate 25 mg tablet extended release 24 hr See Rx Instructions .ROUTE .COMPLEX Qty: 90 1RF Hold Instructions: Home Medication placed on hold at Doctor's office Dose Instruction: TAKE ONE TABLET BY MOUTH DAILY Rx Instructions: TAKE ONE TABLET BY MOUTH DAILY NEEDED FOR HEART RATE labetalol 100 mg tablet 100 mg PO BID 30 Days Qty: 60 0RF Discharge Orders: Discharge Order (Routine); Ordered 06/16/22 Ordered By: Franklin Cedillo Referrals: Patricia Abad NP [Primary Care Provider] - 06/20/22 10:00 am (Please follow-up with Patricia Abad on June 20 at 10A.M. If you have any questions or need to reschedule. Please call ) Patient Instructions: Clonidine (By mouth), Chlorthalidone (By mouth), Losartan (By mouth) (Cozaar), Hypertensive Crisis (DC), Type 2 Diabetes Management for Adults (DC), Chest Pain Stoplight, Opioid Safety Activity Restrictions/Additional Instructions: Take all meds as prescribed. Take you blood pressure two times a day to give to your primary care provider. Return for any concerns. Keep appointment you have already arranged with cardiology, Dr. Michael. Patient's Health Concerns: Elevated BP Assessment: Same Plan of Treatment: Taper Clonidine. I discussed this with you PCP. Add Chlorthalidone, Losartan. Discharge Attestations Time Spent in Discharge Care*: greater than 30 min Quality Metrics Clinical Quality Measures [ No reported AMI, CVA or VTE this stay] Coding Level of Care Code 32496 Diagnoses Hypertensive urgency, malignant I16.0 Chest pain R07.89 Chest pain type: other chest pain Diabetes mellitus type 2, insulin dependent E11.9; Z79.4 Time Spent (min) 49
--- NOTE | 2022-06-16 15:12 | PC.NURSE ---
Patient was discharged at 1453 with understanding of all discharge instructions and education about newly prescribed meds. Patient and verbalized understanding. Medications were sent to [facility]. Patient was wheeled to ER entrance by nurse with at side.
== END 2022-06-16 15:12 | disposition home or self-care (01) ==
LOC: ER 06-16 03:54 → CSU 06-16 07:04
PROVIDERS: Emergency Medicine; Admitting Provider Family Medicine; Emergency Provider Emergency Medicine; PCP Nurse Practitioner Family; Visit Provider Internal Medicine
DX: I16.0 Hypertensive urgency (principal); R07.89 Other chest pain; E11.9 Type 2 diabetes mellitus without complications; I10 Essential (primary) hypertension; Z79.4 Long term (current) use of insulin; I07.1 Rheumatic tricuspid insufficiency; Z88.2 Allergy status to sulfonamides
CPT/HCPCS: 36415; 36416; 70450; 71045; 80053; 82962; 83880; 84443; 84484; 85025; 93005; 93306; 94664; 96372; 96374; 96375; 99285; G0378; J0360; J1815; J2060

== ENCOUNTER 2022-06-18 14:16 | Emergency (ER) | payer MEDICAID, SELFPAY ==
[2022-06-18 14:19] VITALS: BP 186/105; PULSE 64; RESP 16; TEMP 37; O2SAT 98; BMI 39.1
--- NOTE | 2022-06-18 14:26 | ECG_ITS ---
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 Measurements Intervals House Rate: 60 P: 138 GA: 154 QRS: -5 QRSD: 94 T: 12 QT: 407 QTc: 409 Interpretive Statements SINUS RHYTHM POSSIBLE LEFT ATRIAL ENLARGEMENT [-0.1mV P-WAVE IN V1/V2] ANTEROSEPTAL MYOCARDIAL INFARCTION , OF INDETERMINATE AGE [40+ ms Q WAVE IN V1-V4] Compared to ECG 06/16/2022 04:59:43 Myocardial infarct finding now present T-wave abnormality no longer present Electronically Signed On 06-18-2022 16:26:59 CDT by Tony Abrams M.D. [id number]
[2022-06-18 17:00] VITALS: BP 186/79; PULSE 61; O2SAT 94
--- NOTE | 2022-06-18 17:39 | W.ED.RECABL ---
HPI - Recheck/Abnormal Lab/Rx General: Chief Complaint: Recheck/Abnormal Lab/Rx Stated Complaint: bp issues Time Seen by Provider: 06/18/22 16:44 Source: patient and family Mode of arrival: ambulatory Limitations: no limitations History of Present Illness: Patient returns to the emergency department because of concerns about blood pressure medications and other side effects symptoms she has been having since she was seen in the emergency department and admitted just recently. She states she took the one of the prescribed medications and developed leg cramps and was concerned about why the symptoms were occurring. She had no concomitant chest pain shortness of breath etc. She has no known history of coronary artery disease that is been documented. She denies any nonsteroidal use, excess salt use, alcohol use tobacco use etc. 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 She is goal-directed and fluent in her speech. Const: COMMON NORMALS: no acute distress, patient oriented x3, healthy appearing and alert GENERAL APPEARANCE: cooperative and comfortable NUTRITIONAL APPEARANCE: overweight HENMT: COMMON NORMALS: normocephalic, Normal nasal mucous membranes and turbinates present, moist oral mucous membranes and oropharynx normal HEAD & SCALP: normocephalic NOSE: Normal nasal mucous membranes and turbinates present Eye: COMMON NORMALS: Equal, round and reactive pupils present, EOMs intact bilaterally and conjunctivae normal CONJUNCTIVA: Yes conjunctivae normal PUPIL: Yes Equal, round and reactive pupils present Neck/C-Spine: COMMON NORMALS: full ROM, no lymphadenopathy, supple, no JVD and No carotid bruits Chest: COMMONS NORMALS: normal inspection of the chest Resp: COMMON NORMALS: normal respiratory effort, No retractions, No use of accessory muscles and clear to auscultation bilaterally AUSCULTATION: clear to auscultation bilaterally Cardio: COMMON NORMALS: no JVD, regular rate, regular rhythm, No murmurs present (Cardio) and Peripheral pulses 2+ throughout RATE: regular rate RHYTHM: regular rhythm PERIPHERAL PULSES: Peripheral pulses 2+ throughout GI: COMMON NORMALS: Normal to inspection, nondistended, normoactive bowel sounds present, Soft to palpation and non-tender PALPATION: Yes Soft to palpation : COMMON NORMALS: Yes no CVA tenderness BLADDER/KIDNEY EXAM: Yes no CVA tenderness Back/Pelvis: COMMON NORMALS: no CVA tenderness, thoracic and lumbar spine normal to inspection, no thoracic nor lumbar tenderness and thoraco-lumbar ROM normal Extremity: COMMON NORMALS: normal to inspection, full ROM, capillary refill normal, no calf tenderness and no pedal edema Neuro: COMMON NORMALS: patient oriented x3, moves all extremities, no focal motor deficits and no sensory deficits noted SENSORIUM/ORIENTATION: Yes alert CRANIAL NERVES: Yes CN normal except as noted Psych: COMMON NORMALS: mental status grossly normal Skin: COMMON NORMALS: no rashes or lesions noted, no wounds and turgor normal GENERAL SKIN EXAM: no rashes or lesions noted and turgor normal Course Reevaluation(s): Reevaluation #1: Patient states she feels fine. I took manual blood pressure readings on both left and right arm. She has a diminished systolic pulse volume but I was able to auscultate a systolic blood pressure in the 160s over diastolic pressure of approximately 88 in both arms. She is on a very low-dose of losartan so we will go ahead and give her an additional dose and increase her to 25 mg of losartan twice daily. She does not want to take the chlorthalidone she thinks it gives her cramps. Her potassium magnesium are normal. Time: 19:32 Reevaluation #2: She remained stable and doing well. Again no worrisome elevation of blood pressure this evening. She is in the process of weaning off the clonidine and has being transitioned to losartan. She as noted above was on a very low-dose of losartan so I have increased her losartan by 25 more milligrams daily. She also relates that she thinks that some of the stressors and anxiety have contributed to her labile hypertension as well. I discussed the concerns about benzodiazepines and other medications for chronic anxiety. She is very reluctant to take any of the other class of medications such as the SSRIs X etc. We will going give her a trial of 100 hydroxyzine to see if that gives her any benefit and if so she may request a prescription from her primary care doctor. Stable at this time for discharge. Time: 20:15 Vital Signs: Vital signs: Vital Signs Temperature 98.6 F 06/18/22 14:19 Pulse Rate 61 06/18/22 20:03 Respiratory Rate 16 06/18/22 20:03 Blood Pressure 180/60 06/18/22 20:03 Pulse Oximetry 96 06/18/22 20:03 Oxygen Delivery Me thod Room Air 06/18/22 20:03 MDM - Recheck/Abnormal Lab/Rx Medical Decision Making Patient with labile hypertension returns to the emergency department because of concerns about blood pressure elevations. She apparently has been treated for some time with her blood pressure with clonidine but however and most recent weeks she has had labile episodes of hypertension and required transition off the clonidine to a more stable antihypertensive. During that process she is continue to experience fluctuations in her blood pressure which have created her some angst. Her clinical examination revealed certainly elevated systolic blood pressure but not of any urgency or immediate concern this evening and not associated with any secondary symptoms such as CHF, chest pain, other endorgan acute pathology. She was noted to be on a very low-dose of losartan and so that was increased. We will also give her a short course of hydroxyzine to see if that aids in some of her underlying anxiety which may or may not be contributing to her blood pressure. We also reviewed other contributing factors to uncontrolled hypertension such as nonsteroidal use, sodium intake etc. Medical Records I reviewed the patient's medical records. Prior medication and current prescriptions noted and reviewed. Lab Data I reviewed the patient's lab results. 06/18/22 17:50 Laboratory Results Sodium 137 mmol/L (136-145) 06/18/22 17:50 Potassium 3.9 mmol/L (3.5-5.1) 06/18/22 17:50 Chloride 98 mmol/L (98-107) 06/18/22 17:50 Carbon Dioxide 27 mmol/L (22-29) 06/18/22 17:50 Anion Gap 15.9 (5-19) 06/18/22 17:50 BUN 19 mg/dL (6-20) 06/18/22 17:50 Creatinine 0.8 mg/dL (0.5-0.9) 06/18/22 17:50 GFR Calculation 73.4 mL/min (90-130) L 06/18/22 17:50 Glucose 272 mg/dL (65-115) H 06/18/22 17:50 Calculated Osmolality 296 mOsm/kg (285-295) H 06/18/22 17:50 Calcium 9.2 mg/dL (8.5-10.5) 06/18/22 17:50 Magnesium 1.9 mg/dL (1.7-2.3) 06/18/22 17:50 TSH 1.36 uIU/mL (0.27-4.20) 06/18/22 17:50 Discharge Plan Discharge Patient Disposition: Home Clinical Impression: HTN (hypertension) Condition: Stable Prescriptions: New hydroxyzine HCl 25 mg tablet 25 mg PO BID PRN (Reason: anxiety) Qty: 14 0RF losartan 25 mg tablet 25 mg PO BID Qty: 30 0RF No Action (DME) Poise Pads Pad See Rx Instructions .ROUTE .MEDSUPPLY Qty: 132 4RF Rx Instructions: FOR INCONTINANCE FROM SPECIFIED CONDITION nitroglycerin 0.4 mg tablet, sublingual 0.4 mg sublingual Q5M Qty: 25 0RF GlucaGen HypoKit 1 mg recon soln 1 mg SUBCUT Q20M PRN (Reason: hypoglycemia) Qty: 1 2RF Rx Instructions: until target blood sugar attained acetaminophen-codeine 300-60 mg tablet 1 tab PO Q6H Qty: 120 0RF docusate sodium [DSS] 250 mg capsule 250 mg PO BID 90 Days Qty: 180 1RF Flovent HFA 44 mcg/actuation HFA aerosol inhaler 2 puff INHALATION BID Qty: 31.8 1RF insulin lispro [Humalog U-100 Insulin] 100 unit/mL solution See Rx Instructions .ROUTE .COMPLEX Qty: 60 6RF Dose Instruction: inject 40 units SUBCUTANEOUSLY THREE TIMES DAILY Rx Instructions: inject 40 units SUBCUTANEOUSLY THREE TIMES DAILY PER SLIDING SCALE ipratropium-albuterol 0.5 mg-3 mg(2.5 mg base)/3 mL solution for nebulization See Rx Instructions .ROUTE .COMPLEX Qty: 180 1RF Dose Instruction: USE 3 ML VIA NEBULIZER FOUR TIMES DAILY NEEDED FOR WHEEZING Rx Instructions: USE 3 ML VIA NEBULIZER FOUR TIMES DAILY NEEDED FOR WHEEZING temazepam 30 mg capsule 30 mg PO .qhs 90 Days Qty: 90 1RF pantoprazole [Protonix] 40 mg tablet,delayed release (DR/EC) 40 mg PO DAILY 90 Days Qty: 90 1RF blood sugar diagnostic Strip See Rx Instructions .ROUTE .COMPLEX Qty: 150 3RF Dose Instruction: USE DIRECTED TO test FOUR TIMES DAILY AT meals AND AT BEDTIME Rx Instructions: USE DIRECTED TO test FOUR TIMES DAILY AT meals AND AT BEDTIME (DME) Blood Glucose Test Strip See Rx Instructions .Route Qty: 50 5RF Rx Instructions: TESTING FOUR TIMES DAILY (DME) blood-glucose meter Misc See Rx Instructions .Route Qty: 1 0RF Rx Instructions: As directed Lantus U-100 Insulin 100 unit/mL solution 70 unit SUBCUT BID losartan 50 mg Tablet 25 mg PO DAILY Qty: 15 0RF clonidine HCl 0.1 mg Tablet 0.1 mg PO BID Qty: 60 0RF chlorthalidone 25 mg Tablet 25 mg PO Q24H Qty: 30 0RF Discharge Orders: Discharge ED (Routine); Ordered 06/18/22 Ordered By: Nathanael Conde Referrals: Patricia Abad NP [Primary Care Provider] - Discharge Diet: Low Salt Discharge Activity: Increase activity as tolerated Patient Instructions: Opioid Safety, Pain Management Activity Restrictions/Additional Instructions: As we discussed your blood pressure will continue to need to be monitored and medications adjusted to appropriately control it. We have increased your losartan to 25 mg twice daily. We also recommend continue clonidine on an as-needed basis as previously described and discussed. Continue usual diet of low-salt (no greater than 2 g daily). We have also provided a trial of medication to help with any anxiety symptoms which you may use twice daily as needed. If you develop any chest pain, headache, weakness shortness of breath etc. or any other concerning symptoms return to this emergency department otherwise follow-up with your regular doctor next week as scheduled. Coding Level of Care Code ED Rooming House Inspector for Raymond Drake
[2022-06-18 18:40] LABS: Anion Gap 15.9 (5-19); Blood Urea Nitrogen 19 mg/dL (6-20); Calcium 9.2 mg/dL (8.5-10.5); Carbon Dioxide 27 mmol/L (22-29); Chloride 98 mmol/L (98-107); Glomerular Filtration Rate 73.4 mL/min (90-130); Glucose 272 mg/dL (65-115); Magnesium 1.9 mg/dL (1.7-2.3); Osmolality Calculated 296 mOsm/kg (285-295); Potassium 3.9 mmol/L (3.5-5.1); Sodium 137 mmol/L (136-145); Thyroid Stimulating Hormone 1.36 uIU/mL (0.27-4.20)
[2022-06-18] MEDS: losartan 50 mg Tablet 25 MG PO (19:54)
[2022-06-18 19:59] VITALS: BP 180/60; PULSE 62; RESP 16; O2SAT 97
[2022-06-18 20:03] VITALS: BP 180/60; PULSE 61; RESP 16; O2SAT 96
[2022-06-18 20:30] VITALS: BP 180/60; PULSE 61; RESP 16; O2SAT 96
== END 2022-06-18 20:30 | disposition home or self-care (01) ==
PROVIDERS: Emergency Provider Emergency Medicine; PCP Nurse Practitioner Family
DX: I10 Essential (primary) hypertension (principal); Z79.4 Long term (current) use of insulin; E11.9 Type 2 diabetes mellitus without complications
CPT/HCPCS: 36415; 80048; 83735; 84443; 93005; 99284

== ENCOUNTER → 2022-06-25 11:19 | Outpatient (BNVA) | payer MEDICAID, SELFPAY | PROVIDERS: PCP Nurse Practitioner Family; Visit Provider Nurse Practitioner Family | DX: I10 Essential (primary) hypertension (principal); K21.9 Gastro-esophageal reflux disease without esophagitis; G47.00 Insomnia, unspecified; I20.8 Other forms of angina pectoris; Z09 Encounter for follow-up examination after completed treatment for conditions other than malignant neoplasm; E11.9 Type 2 diabetes mellitus without complications; Z79.4 Long term (current) use of insulin | CPT/HCPCS: 80053; 80061 ==

== ENCOUNTER 2022-06-30 11:55 | Outpatient (CLI) | payer MEDICAID, SELFPAY ==
--- NOTE | 2022-06-30 12:38 | XRR_ITS ---
PROCEDURE INFORMATION: Exam: XR Lumbosacral Spine Exam date and time: 06/30/2022 12:59 PM Age: 61 years old Clinical indication: Low back pain TECHNIQUE: Imaging protocol: Radiologic exam of the lumbosacral spine. Views: 4 or 5 views. COMPARISON: No relevant prior studies available. FINDINGS: Bones/joints: Normal. No acute fracture. There is second-degree spondylolisthesis L4-L5. Negative for spondylolysis. No additional acute bony abnormalities are documented Soft tissues: Unremarkable. XR/XR lumbar spine min 4V [id number] IMPRESSION: 1. Spondylolisthesis L4-L5 2. Otherwise No acute findings.
--- NOTE | 2022-06-30 12:38 | XRR_ITS ---
PROCEDURE INFORMATION: Exam: XR Bilateral Hips Exam date and time: 06/30/2022 12:59 PM Age: 61 years old Clinical indication: Hip pain; Bilateral; Additional info: Bilateral hip pain TECHNIQUE: Imaging protocol: Radiologic exam of the bilateral hips. Views: 2 views of hips with pelvis when performed. COMPARISON: No relevant prior studies available. FINDINGS: Bones/joints: There is a mildly displaced subcapital fracture right femoral neck. Otherwise no bone abnormality in the left hip. Soft tissues: Unremarkable. XR/XR hip BI 3-4V wo/w pel [id number] IMPRESSION: 1. Subcapital fracture left femoral neck 2. Otherwise negative examination
== END 2022-06-30 11:56 | disposition home or self-care (01) ==
LOC: RAD 12:05
PROVIDERS: PCP Nurse Practitioner Family; Visit Provider Nurse Practitioner Family
DX: M54.50 Low back pain, unspecified (principal); M25.552 Pain in left hip; M25.551 Pain in right hip; M43.16 Spondylolisthesis, lumbar region
CPT/HCPCS: 72110; 73522

== ENCOUNTER → 2022-07-01 13:35 | Outpatient (BNVA) | payer MEDICAID, SELFPAY | PROVIDERS: PCP Nurse Practitioner Family; Referring Provider Nurse Practitioner Family; Visit Provider Orthopaedic Surgery | DX: M25.552 Pain in left hip (principal) | CPT/HCPCS: 99203 ==

== ENCOUNTER 2022-07-07 21:07 | Emergency (ER) | payer MEDICAID, SELFPAY ==
[2022-07-07 21:10] VITALS: BP 197/94; PULSE 77; RESP 20; TEMP 36.7; O2SAT 94; BMI 38.6
--- NOTE | 2022-07-07 21:12 | ECG_ITS ---
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 Measurements Intervals [place] Rate: 77 P: 124 DE: 150 QRS: -27 QRSD: 91 T: 150 QT: 383 QTc: 436 Interpretive Statements SINUS RHYTHM POSSIBLE LEFT ATRIAL ENLARGEMENT [-0.1mV P-WAVE IN V1/V2] LEFT VENTRICULAR HYPERTROPHY AND ST-T CHANGE [VOLTAGE CRITERIA PLUS ST/T ABNORMALITY] POSSIBLE ANTERIOR MYOCARDIAL INFARCTION , OF INDETERMINATE AGE [30 ms Q WAVE IN V3/V4, OR R < 0.2 mV IN V4] INTERPRETATION BASED ON A DEFAULT AGE OF 40 YEARS Compared to ECG 06/18/2022 14:26:53 Left ventricular hypertrophy now present ST (T wave) deviation now present Myocardial infarct finding still present Electronically Signed On 07-08-2022 0:20:24 CDT by Vianca Michael M.D. [email or web address] ([id number] [email or web address]
--- NOTE | 2022-07-07 21:12 | XRR_ITS ---
PROCEDURE INFORMATION: Exam: XR Chest Exam date and time: 07/07/2022 9:31 PM Age: 61 years old Clinical indication: Pain; Chest pressure; Additional info: Cp TECHNIQUE: Imaging protocol: Radiologic exam of the chest. Views: 1 view. COMPARISON: CR (CHEST, ) 06/15/2022 11:25 PM FINDINGS: Lungs: Unremarkable. No consolidation. Pleural spaces: Unremarkable. No pleural effusion. No pneumothorax. Heart/Mediastinum: Unremarkable. No cardiomegaly. Bones/joints: Unremarkable. XR/XR chest 1V portable [id number] IMPRESSION: No acute findings.
[2022-07-07 21:55] LABS: Basophils # 0.1 10^3/uL (0.0-0.1); Basophils % 0.8 %; Eosinophils # 0.2 10^3/uL (0.0-0.8); Eosinophils % 1.6 %; Hematocrit 41.9 % (37.0-47.0); Lymphocytes # 2.8 10^3/uL (0.8-4.8); Lymphocytes % 26.3 %; Mean Corpuscular Hemoglobin 24.7 pg (28.0-34.0); Mean Corpuscular Volume 79.7 fl (81-99); Mean Platelet Volume 10.9 fL (7.4-10.4); Monocytes # 1.1 10^3/uL (0.2-0.9); Monocytes % 10.2 %; Neutrophils # 6.45 10^3/uL (1.8-7.7); Neutrophils % 60.7 %; Nucleated Red Blood Cells % 0 %; Platelet Count 307 10^3/cmm (130-400); Red Blood Count 5.26 10^6/uL (4.1-5.3); Red Cell Distribution Width 13.3 % (12.1-15.1); White Blood Count 10.6 10^3/uL (4.0-10.0)
[2022-07-07 22:10] LABS: INR 0.94 (0.8-1.2)
[2022-07-07 22:15] LABS: Troponin(5th) Baseline 6 ng/L (0-10)
[2022-07-07 22:16] LABS: Alanine Aminotransferase 13 U/L (0-33); Albumin Level 3.8 g/dL (3.5-5.2); Alkaline Phosphatase 127 U/L (35-105); Anion Gap 13.8 (5-19); Aspartate Amino Transferase 13 U/L (0-32); Blood Urea Nitrogen 12 mg/dL (6-20); Calcium 9.2 mg/dL (8.5-10.5); Carbon Dioxide 28 mmol/L (22-29); Chloride 99 mmol/L (98-107); Globulin 3.3 g/dL (1.3-4.6); Glomerular Filtration Rate 73.4 mL/min (90-130); Glucose 184 mg/dL (65-115); Lipase 14 U/L (13-60); Osmolality Calculated 289 mOsm/kg (285-295); Potassium 3.8 mmol/L (3.5-5.1); Sodium 137 mmol/L (136-145); Total Bilirubin 0.2 mg/dL (0.15-1.2); Total Protein 7.1 g/dL (6.6-8.7)
--- NOTE | 2022-07-07 22:35 | W.ED.CHESTPA ---
HPI - Chest Pain General: Chief Complaint: Chest Pain Stated Complaint: Chest Pains Time Seen by Provider: 07/07/22 22:08 Source: patient Mode of arrival: ambulatory Limitations: no limitations History of Present Illness: 61-year-old female states she has chronic hypertension has been having chest pain over the last months she been seen here multiple times for it and was admitted a month ago. 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 Spinal stenosis Surgical History Previous section S/P appendectomy Family History Father Diabetes Other Hypertension Social History Smoking and tobacco status: never smoked Second hand smoke exposure: Yes Smoking risk assessment/counseling performed?: No Alcohol intake: never Desire information about alcohol rehabilitation?: No Counseling given: No Substance/Drug Use: never Marital status: Current occupational status: disabled Physical Exam Const: COMMON NORMALS: no acute distress, patient oriented x3 and healthy appearing HENMT: COMMON NORMALS: normocephalic and atraumatic HEAD & SCALP: normocephalic and atraumatic Eye: COMMON NORMALS: conjunctivae normal CONJUNCTIVA: Yes conjunctivae normal Neck/C-Spine: COMMON NORMALS: full ROM and supple Chest: COMMONS NORMALS: normal inspection of the chest and normal palpation of entire chest wall Resp: COMMON NORMALS: normal respiratory effort, No retractions, No use of accessory muscles and clear to auscultation bilaterally AUSCULTATION: clear to auscultation bilaterally Cardio: COMMON NORMALS: regular rate, regular rhythm and No murmurs present (Cardio) RATE: regular rate RHYTHM: regular rhythm GI: INSPECTION: Yes normal to inspection Extremity: COMMON NORMALS: normal to inspection and full ROM Neuro: COMMON NORMALS: patient oriented x3, moves all extremities and no focal motor deficits Psych: COMMON NORMALS: mental status grossly normal, Normal thought process present and cooperative THOUGHT PROCESS: Normal thought process present Skin: COMMON NORMALS: no rashes or lesions noted and no wounds GENERAL SKIN EXAM: no rashes or lesions noted Course Vital Signs: Vital signs: Vital Signs Temperature 98.1 F 07/07/22 21:10 Pulse Rate 56 L 07/08/22 01:39 Respiratory Rate 18 07/08/22 01:39 Blood Pressure 180/72 07/08/22 01:39 Pulse Oximetry 95 07/08/22 01:39 Oxygen Delivery Me thod Room Air 07/08/22 01:04 MDM - Chest Pain Medical Decision Making Patient presents for chest pain along with hypertension her troponins here are normal. No signs of acute coronary syndrome. Patient was very frustrated and angry while she was here. I have spoken to her multiple times I went through her last admission and she had refused stress test both treadmill and chemical I did ask her if she be willing to have that and she adamantly said no. She refused multiple blood pressure medicine she states that she does not like the way hydralazine makes her feel she states that lisinopril gives her cough she does not like taking metoprolol because her heart rate gets too low. She states that she had taken a diuretic before and she did not like how that made her feel either so she refuses that as well. Blood pressure here has improved I will increase her Cozaar to 75 mg twice daily she is to follow-up with cardiology return if worsening. Lab Data 07/07/22 21:40 07/07/22 21:40 Radiology Impressions Chest X-Ray 07/07/22 21:12 IMPRESSION: No acute findings. Laboratory Results WBC 10.6 10^3/uL (4.0-10.0) H 07/07/22 21:40 RBC 5.26 10^6/uL (4.1-5.3) 07/07/22 21:40 Hgb 13.0 g/dL (11.5-15.3) 07/07/22 21:40 Hct 41.9 % (37.0-47.0) 07/07/22 21:40 MCV 79.7 fl (81-99) L 07/07/22 21:40 MCH 24.7 pg (28.0-34.0) L 07/07/22 21:40 MCHC 31.0 g/dL (30.0-36.0) 07/07/22 21:40 RDW 13.3 % (12.1-15.1) 07/07/22 21:40 Plt Count 307 10^3/cmm (130-400) 07/07/22 21:40 MPV 10.9 fL (7.4-10.4) H 07/07/22 21:40 Neut % (Auto) 60.7 % 07/07/22 21:40 Lymph % (Auto) 26.3 % 07/07/22 21:40 [place] % (Auto) 10.2 % 07/07/22 21:40 Eos % (Auto) 1.6 % 07/07/22 21:40 Baso % (Auto) 0.8 % 07/07/22 21:40 Neut # (Auto) 6.45 10^3/uL (1.8-7.7) 07/07/22 21:40 Lymph # (Auto) 2.8 10^3/uL (0.8-4.8) 07/07/22 21:40 [place] # (Auto) 1.1 10^3/uL (0.2-0.9) H 07/07/22 21:40 Eos # (Auto) 0.2 10^3/uL (0.0-0.8) 07/07/22 21:40 Baso # (Auto) 0.1 10^3/uL (0.0-0.1) 07/07/22 21:40 Nucleated RBC % (auto) 0 % 07/07/22 21:40 Nucleated RBCs # 0.0 /100WBC 07/07/22 21:40 PT 12.90 SECONDS (12.1-14.9) 07/07/22 21:40 INR 0.94 (0.8-1.2) 07/07/22 21:40 Sodium 137 mmol/L (136-145) 07/07/22 21:40 Potassium 3.8 mmol/L (3.5-5.1) 07/07/22 21:40 Chloride 99 mmol/L (98-107) 07/07/22 21:40 Carbon Dioxide 28 mmol/L (22-29) 07/07/22 21:40 Anion Gap 13.8 (5-19) 07/07/22 21:40 BUN 12 mg/dL (6-20) 07/07/22 21:40 Creatinine 0.8 mg/dL (0.5-0.9) 07/07/22 21:40 GFR Calculation 73.4 mL/min (90-130) L 07/07/22 21:40 Glucose 184 mg/dL (65-115) H 07/07/22 21:40 Calculated Osmolality 289 mOsm/kg (285-295) 07/07/22 21:40 Calcium 9.2 mg/dL (8.5-10.5) 07/07/22 21:40 Total Bilirubin 0.2 mg/dL (0.15-1.2) 07/07/22 21:40 AST 13 U/L (0-32) 07/07/22 21:40 ALT 13 U/L (0-33) 07/07/22 21:40 Alkaline Phosphatase 127 U/L (35-105) H 07/07/22 21:40 Troponin T Baseline 6 ng/L (0-10) 07/07/22 21:40 Troponin T 120 Minute 7.94 ng/L (0-10) 07/08/22 00:32 Total Protein 7.1 g/dL (6.6-8.7) 07/07/22 21:40 Albumin 3.8 g/dL (3.5-5.2) 07/07/22 21:40 Globulin 3.3 g/dL (1.3-4.6) 07/07/22 21:40 Lipase 14 U/L (13-60) 07/07/22 21:40 Discharge Plan Discharge Patient Disposition: Home Clinical Impression: Chest pain, Hypertension Condition: Stable Prescriptions: New losartan 25 mg tablet 25 mg PO BID Qty: 60 0RF No Action (DME) Poise Pads Pad See Rx Instructions .ROUTE .MEDSUPPLY Qty: 132 4RF Rx Instructions: FOR INCONTINANCE FROM SPECIFIED CONDITION GlucaGen HypoKit 1 mg recon soln 1 mg SUBCUT Q20M PRN (Reason: hypoglycemia) Qty: 1 2RF Rx Instructions: until target blood sugar attained acetaminophen-codeine 300-60 mg tablet 1 tab PO Q6H Qty: 120 0RF pantoprazole [Protonix] 40 mg tablet,delayed release (DR/EC) 40 mg PO DAILY 90 Days Qty: 90 1RF temazepam 30 mg capsule 30 mg PO .qhs 90 Days Qty: 90 1RF clonidine HCl 0.1 mg tablet 0.1 mg PO BID Qty: 60 0RF nitroglycerin 0.4 mg tablet, sublingual 0.4 mg sublingual Q5M Qty: 25 0RF docusate sodium [DSS] 250 mg capsule 250 mg PO BID 90 Days Qty: 180 1RF Flovent HFA 44 mcg/actuation HFA aerosol inhaler 2 puff INHALATION BID Qty: 31.8 1RF insulin lispro [Humalog U-100 Insulin] 100 unit/mL solution See Rx Instructions .ROUTE .COMPLEX Qty: 60 6RF Dose Instruction: inject 40 units SUBCUTANEOUSLY THREE TIMES DAILY Rx Instructions: inject 40 units SUBCUTANEOUSLY THREE TIMES DAILY PER SLIDING SCALE ipratropium-albuterol 0.5 mg-3 mg(2.5 mg base)/3 mL solution for nebulization See Rx Instructions .ROUTE .COMPLEX Qty: 180 1RF Dose Instruction: USE 3 ML VIA NEBULIZER FOUR TIMES DAILY NEEDED FOR WHEEZING Rx Instructions: USE 3 ML VIA NEBULIZER FOUR TIMES DAILY NEEDED FOR WHEEZING blood sugar diagnostic Strip See Rx Instructions .ROUTE .COMPLEX Qty: 150 3RF Dose Instruction: USE DIRECTED TO test FOUR TIMES DAILY AT meals AND AT BEDTIME Rx Instructions: USE DIRECTED TO test FOUR TIMES DAILY AT meals AND AT BEDTIME (DME) Blood Glucose Test Strip See Rx Instructions .Route Qty: 50 5RF Rx Instructions: TESTING FOUR TIMES DAILY (DME) blood-glucose meter Misc See Rx Instructions .Route Qty: 1 0RF Rx Instructions: As directed losartan 50 mg tablet 50 mg PO .PM 90 Days Qty: 90 1RF losartan 50 mg tablet 50 mg PO .AM 90 Days Qty: 90 1RF Lantus U-100 Insulin 100 unit/mL solution 70 unit SUBCUT BID Discharge Orders: Discharge ED (Routine); Ordered 07/08/22 Ordered By: Leti Johnson Referrals: Patricia Abad NP [Primary Care Provider] - Vianca Michael MD [Physician] - 1-3 days Discharge Diet: Advance as tolerated Discharge Activity: Resume usual activity Patient Instructions: Chest Pain (ED), Hypertension (ED) Coding Level of Care Code ED Superintendent Communications for Raymond Drake
--- NOTE | 2022-07-07 23:13 | PC.NURSE ---
Pt was prescribed 4 324-mg aspirin tablets. Patient refused to take all 4 tablets, and instead decided to take only 2 tablets, a total of 162mg aspirin, stating, I will not take all 4, unless you want me to be admitted for stomach pain. Nurse attempted to educate patient regarding importance of taking all 4 prescribed pills; despite education, patient continued to refuse. Education reinforcement needed.
[2022-07-07] MEDS: metoprolol tartrate 50 mg Tablet PO (23:41)
[2022-07-07 23:53] VITALS: BP 203/99; O2SAT 95
[2022-07-08 00:01] VITALS: BP 197/91; O2SAT 92
[2022-07-08 00:16] VITALS: BP 144/84; O2SAT 94
[2022-07-08 00:19] VITALS: BP 196/76; O2SAT 92
[2022-07-08 00:31] VITALS: BP 174/84; O2SAT 94
[2022-07-08 01:01] LABS: Troponin 5 2HR 7.94 ng/L (0-10)
[2022-07-08 01:04] VITALS: BP 241/87; PULSE 54; RESP 18; O2SAT 97
--- NOTE | 2022-07-08 01:24 | PC.NURSE ---
Dr Johnson informed of high blood pressure, and clonidine was prescribed. When this nurse went to administer clonidine, pt stated that she was not supposed to have clonidine because I have a reaction to it. When nurse questioned what kind of reaction, patient and spouse unable to answer. Nurse asked what the patient experienced when she had clonidine, and pt stated, it makes my blood pressure go high. Nurse informed Dr Johnson of patient's refusal.
[2022-07-08] MEDS: losartan 50 mg Tablet 25 MG PO (01:38)
[2022-07-08 01:39] VITALS: BP 180/72; PULSE 56; RESP 18; O2SAT 95
[2022-07-08 02:37] LABS: Troponin 5 2HR Delta 1.94 ABS# (0-10)
--- NOTE | 2022-07-08 08:33 | DCPLANNER ---
Addendum entered by Negrita Jerome 07/09/22 13:08: Patient has a follow up appointment scheduled for Friday, July 29, 2022 at 10:[address] Michael at [facility]. Original Note: manager managed care had message to schedule a follow up appointment for patient with cardiology. manager managed care sent patients information to the front office staff at [facility]. Patients information will be printed and reviewed. Clinic will call patient with appointment information.
== END 2022-07-08 01:44 | disposition home or self-care (01) ==
PROVIDERS: Emergency Provider Emergency Medicine; PCP Nurse Practitioner Family
DX: R07.9 Chest pain, unspecified (principal); I10 Essential (primary) hypertension; Z79.4 Long term (current) use of insulin; Z77.22 Contact with and (suspected) exposure to environmental tobacco smoke (acute) (chronic); E11.9 Type 2 diabetes mellitus without complications
CPT/HCPCS: 36415; 71045; 80053; 83690; 84484; 85025; 85610; 93005; 99285

== ENCOUNTER → 2022-10-02 10:19 | Outpatient (BNVA) | payer MEDICAID, SELFPAY | PROVIDERS: PCP Nurse Practitioner Family; Visit Provider Internal Medicine Cardiovascular Disease | DX: R07.89 Other chest pain (principal); I10 Essential (primary) hypertension; R94.31 Abnormal electrocardiogram [ECG] [EKG]; E11.9 Type 2 diabetes mellitus without complications; Z79.4 Long term (current) use of insulin; K21.9 Gastro-esophageal reflux disease without esophagitis | CPT/HCPCS: 99204 ==

== ENCOUNTER 2022-10-29 10:52 | Outpatient (CLI) | payer MEDICAID, SELFPAY ==
--- NOTE | 2022-10-29 11:00 | USCV_ITS ---
Devyn Antonia Age: 61 Gender: F : 1960 Exam Date: 10/29/2022 11:04 Ordering Phys: Vianca Michael MD ([email or web address]) Technologist: Latia Spence Exam Location: [facility] [place] Indication: BP: 150 / 90 HR: 51 Rhythm: Sinus Technical Quality: Adequate MEASUREMENTS (Male / Female) Normal Values 2D ECHO LV Diastolic Diameter PLAX 4.5 cm 4.2 - 5.9 / 3.9 - 5.3 cm LV Systolic Diameter PLAX 2.7 cm LV Chamber Size 4.0 cm IVS Diastolic Thickness 1.1 cm 0.6 - 1.0 / 0.6 - 0.9 cm IVS Systolic Thickness 1.6 cm LVPW Diastolic Thickness 1.3 cm 0.6 - 1.0 / 0.6 - 0.9 cm LVPW Systolic Thickness 1.6 cm RV Chamber Size 2.6 cm LVOT Diameter 2.0 cm LV Ejection Fraction 2D Teich 71.3 % LV Ejection Fraction MOD 2C 59.6 % LV Ejection Fraction 2C AL 59.8 % LA Diameter 3.1 cm LA Width 3.5 cm LA Height 3.8 cm RA Width 3.2 cm RA Height 3.8 cm Aorta at Sinotubular Diameter 3.4 cm IVC Diameter 1.8 cm M-MODE Aortic Annulus Diameter 3.3 cm LA Ao Ratio MM 1.0 MV E Point Septal Separation 0.4 cm DOPPLER AV Peak Velocity 158.3 cm/s LVOT Peak Velocity 101.7 cm/s AV Area Cont Eq vti 2.2 cm squared AV Area Cont Eq pk 2.1 cm squared MV Area PHT 2.6 cm squared Mitral E to A Ratio 1.0 MV E' Velocity 51.0 cm/s Mitral E to MV E' Ratio 13.1 Mitral E to LV E' Lateral Ratio 11.4 Mitral E to LV E' Septal Ratio 15.5 TR Peak Velocity 217.9 cm/s TR Peak Gradient 19.0 mmHg TR Mean Velocity 136.8 cm/s TR Mean Gradient 9.0 mmHg TR Velocity Time Integral 50.1 cm TV Peak E Velocity 63.0 cm/s Right Atrial Pressure 3.0 mmHg Pulmonary Artery Systolic Pressu 22.0 mmHg RV Acceleration Time 0.2 s RV Ejection Time 0.4 s RV AcT/ET 0.5 FINDINGS Left Ventricle Normal left ventricular size and systolic function, EF 70 %. No regional wall motion abnormalities. Grade I/IV diastolic dysfunction (abnormal relaxation filling pattern), normal to mildly elevated filling pressures. Right Ventricle The right ventricle is normal in size and function. Right Atrium The right atrium is normal in size. Left Atrium Upper limit of normal size Mitral Valve No gross abnormalities noted . Aortic Valve Thickened aortic valve. Tricuspid Valve No gross abnormalities noted.trace tricuspid valve regurgitation. Pulmonic Valve No gross abnormalities noted Pericardium Normal pericardium without effusion. Aorta Mildly dilated ascending aorta, measuring 3.8 cm in diameter IVC Normal inferior vena cava. CONCLUSIONS Normal left ventricular size and systolic function, EF 70 %. No regional wall motion abnormalities. Grade I/IV diastolic dysfunction (abnormal relaxation filling pattern), normal to mildly elevated filling pressures. Thickened aortic valve. Trace of tricuspid regurgitation Estimated pulmonary artery peak systolic pressure 22 mm of Hg There is no pericardial effusion. There are no intracardiac masses. Compared to the study from 06/16/2022, there is no significant change Dr Vianca Michael MD FACC (Electronically Signed) Final Date: 30 October 2022 09:31 S
== END 2022-10-29 10:53 | disposition home or self-care (01) ==
PROVIDERS: Absent Provider Nurse Practitioner Family; PCP Nurse Practitioner Family; Visit Provider Internal Medicine Cardiovascular Disease
DX: R06.09 Other forms of dyspnea (principal); I51.89 Other ill-defined heart diseases; I35.8 Other nonrheumatic aortic valve disorders
CPT/HCPCS: 93306

== ENCOUNTER → 2022-11-25 16:42 | Outpatient (BNVA) | payer MEDICAID, SELFPAY | PROVIDERS: PCP Nurse Practitioner Family; Visit Provider Nurse Practitioner Family | DX: I10 Essential (primary) hypertension (principal); E11.9 Type 2 diabetes mellitus without complications; Z79.4 Long term (current) use of insulin | CPT/HCPCS: 80053; 80061; 83036 ==

== ENCOUNTER → 2022-11-28 14:13 | Outpatient (BNVA) | payer MEDICAID, SELFPAY | PROVIDERS: PCP Nurse Practitioner Family; Visit Provider Nurse Practitioner Family | DX: R07.9 Chest pain, unspecified (principal); I10 Essential (primary) hypertension; R07.89 Other chest pain | CPT/HCPCS: 93005 ==

== ENCOUNTER → 2023-03-18 11:32 | Outpatient (BNVA) | payer MEDICAID, SELFPAY | PROVIDERS: PCP Nurse Practitioner Family; Visit Provider Nurse Practitioner Family | DX: E11.9 Type 2 diabetes mellitus without complications (principal); Z79.4 Long term (current) use of insulin; K59.00 Constipation, unspecified; J45.909 Unspecified asthma, uncomplicated; I10 Essential (primary) hypertension; K59.09 Other constipation; L20.9 Atopic dermatitis, unspecified; G47.00 Insomnia, unspecified; R00.2 Palpitations; F41.9 Anxiety disorder, unspecified; E55.9 Vitamin D deficiency, unspecified | CPT/HCPCS: 80053; 80061; 83036; 84443 ==